=== PATIENT | male | born 1945 | race Caucasian/White ===

== ENCOUNTER 2017-07-11 17:16 | Observation (INO) | payer MEDICARE ==
[~2017-07-11] VITALS: Ht 167.6 cm; Wt 75.0 kg
[~2017-07-11 17:16] MED LIST: ALBU8I INH; CENTTAB9 PO; DORZ2SOL3 EACH EYE; GLUC500C56 PO; IPRAAER INH; LATA.005%O EACH EYE; METR-1 PO; PROM25TA5 PO
[2017-07-11 17:18] VITALS: BP 145/67; PULSE 74; RESP 22
[2017-07-11] MEDS ORDERED: SODIUM CHLOR 0.9% 1000 ML INJ 1,000 ML IV ONE (17:29)
[2017-07-11] MEDS ORDERED: SODIUM CHLORIDE 0.9% FLUSH 10 ML FLUSH IVF PRN (17:30)
--- NOTE | 2017-07-11 18:22 | RADRPT ---
EXAM DATE/TIME: 07/11/2017 17:53 [place] COMPARISON: CHEST SINGLE AP, July 28, 2013, 23:37. INDICATIONS : Syncope, weakness. MEDICAL HISTORY : None. SURGICAL HISTORY : None. ENCOUNTER: Initial ACUITY: 1 day PAIN SCORE: 0/10 LOCATION: Bilateral chest FINDINGS: A single view of the chest demonstrates the lungs to be symmetrically aerated without evidence of mas s, infiltrate or effusion. The cardiomediastinal contours are unremarkable. Osseous structures are intact. CONCLUSION: No acute disease. Arie Castrejon Jr., MD on July 11, 2017 at 18:19 Board Certified Radiologist. This report was verified electronically.
[2017-07-11 18:35] LABS: AUTOMATED NEUTROPHIL # 2.7 TH/MM3 (1.8-7.7); BASOPHIL % 0.8 % (0.0-2.0); EOSINOPHIL % 0.1 % (0.0-4.0); HEMOGLOBIN 14.7 GM/DL (13.0-17.0); LYMPH % 26.7 % (9.0-44.0); LYMPHOCYTE # 1.2 TH/MM3 (1.0-4.8); MEAN CELL VOLUME 88.8 FL (80.0-100.0); MEAN CORPUSCULAR HEMOGLOBIN 31.1 PG (27.0-34.0); MEAN PLATELET VOLUME 8.8 FL (7.0-11.0); MONOCYTE # 0.6 TH/MM3 (0-0.9); NEUT % 58.4 % (16.0-70.0); PLATELET COUNT 204 TH/MM3 (150-450); RED BLOOD COUNT 4.73 MIL/MM3 (4.50-5.90); RED CELL DISTRIBUTION WIDTH 13.9 % (11.6-17.2); WHITE BLOOD COUNT 4.6 TH/MM3 (4.0-11.0)
[2017-07-11 18:47] LABS: AMORPHOUS SEDIMENT, URINE RARE; BILIRUBIN, URINE NEG (NEG); BLOOD, URINE NEG (NEG); GLUCOSE,URINE NEG (NEG); HYALINE CAST, URINE 39 /lpf (RARE); KETONE, URINE 10 mg/dL (NEG); MUCUS URINE FEW /lpf (OCC); NITRITE,URINE NEG (NEG); PH, URINE 5.5 (5.0-8.5); SQUAMOUS EPITHELIAL CELL URINE <1 /hpf (0-5); URINE COLOR YELLOW (YELLW/STRAW); URINE LEUKOCYTE ESTERASE NEG (NEG)
--- NOTE | 2017-07-11 18:58 | PD ---
HPI Chief Complaint: Syncope/Near-Syncope Time Seen by Provider: 17:29 Travel History International Travel<30 days: No Contact w/Intl Traveler<30days: No Traveled to known affect area: No History of Present Illness HPI His is a 72-year-old male with a history of pulmonary disease, presents here after having syncopal episode 3 episodes. Patient states he's had diarrhea for the last 2 days. He states that he's had decreased by mouth intake. He was at the orthopedics office with his when he got up and had a syncopal episode. He was caught by one of the staff members at the orthopedic Center. He had 2 further episodes. The patient states that he has had previous syncope in the past and it was secondary to dehydration. The patient has no cardiac history. When paramedics arrived, they found the patient to be pale and diaphoretic. They state that they put him on the monitor and he had ventricular bigeminy. The patient has no chest pain, chest pressure. The patient has no shortness breath or cough. The patient does report the diarrhea as above. He's had recent eye infection for antibiotic eyedrops however has not had any recent oral antibiotics. PFSH Past Medical History Arthritis: Yes Asthma: Yes Anxiety: No Depression: No Heart Rhythm Problems: No Cancer: No Cardiovascular Problems: No High Cholesterol: No Chemotherapy: No Chest Pain: No Congestive Heart Failure: No COPD: Yes Cerebrovascular Accident: No Diabetes: No Diminished Hearing: No Endocrine: No GERD: No Glaucoma: Yes Genitourinary: Yes Hepatitis: No Hiatal Hernia: No Immune Disorder: No Kidney Stones: No Musculoskeletal: Yes (ARTHRITIS) Neurologic: Yes Psychiatric: No Reproductive: No Respiratory: Yes (COPD) Migraines: No Radiation Therapy: No Renal Failure: No Seizures: No Sickle Cell Disease: No Sleep Apnea: No Thyroid Disease: No Ulcer: No Influenza Vaccination: No ?: Not Past Surgical History Abdominal Surgery: No AICD: No Arteriovenous Shunt: No Cardiac Surgery: No Ear Surgery: No Endocrine Surgery: No Eye Surgery: Yes (RHINOPLASTY FOR IMPAIRED VISION) Genitourinary Surgery: No Gynecologic Surgery: No Insulin Pump: No Joint Replacement: No Oral Surgery: Yes (T & A) Pacemaker: No Thoracic Surgery: No Tonsillectomy: Yes Other Surgery: Yes Social History Alcohol Use: No Tobacco Use: No Substance Use: Yes (cannabis) Allergies-Medications (Allergen,Severity, Reaction): Coded Allergies: Horse/Equine Containing Products (Unverified Allergy, Mild, 07/11/17) penicillin G (Unverified Allergy, Mild, 07/11/17) clindamycin (Verified Allergy, Unknown, VOMITING , 07/11/17) Reported Meds & Prescriptions Reported Meds & Active Scripts Active Review of Systems Except as stated in HPI: all other systems reviewed are Neg HENT: Positive: Lightheadedness, No: Headaches, Neck Pain Cardiovascular: Positive: Irregular Rhythm (bigeminy noted via the EMS team. Patient has no history of irregular heartbeat), No: Chest Pain or Discomfort, Palpitations Respiratory: No: Cough, Shortness of Breath Gastrointestinal: Positive: Diarrhea, Other (incontinence to stool with a syncopal episode), No: Nausea, Vomiting, Abdominal Pain Genitourinary: Positive: Incontinence (incontinence after the syncopal episode) , No: Dysuria Musculoskeletal: Positive: Weakness, No: Pain Neurologic: Positive: Weakness, Dizziness, Syncope, No: Headache, Change in Mentation Physical Exam Narrative GENERAL: Developed well-nourished male who appears pale and mildly diaphoretic. SKIN: Focused skin assessment warm/dry. HEAD: Atraumatic. Normocephalic. EYES: No scleral icterus. No injection or drainage. ENT: No nasal bleeding or discharge. Mucous membranes pink and moist. NECK: Trachea midline. Supple. CARDIOVASCULAR: Regular rate and rhythm. There were occasional PVCs noted. No murmur appreciated. RESPIRATORY: No accessory muscle use. Clear to auscultation. Breath sounds equal bilaterally. GASTROINTESTINAL: Abdomen soft, non-tender, nondistended. No pulsatile masses. No pain elicited on exam. MUSCULOSKELETAL: No obvious deformities. No clubbing. No cyanosis. No edema. NEUROLOGICAL: Awake and alert. No obvious cranial nerve deficits. Motor grossly within normal limits. Normal speech. Data Data Last Documented VS Vital Signs Date Time Temp Pulse Resp B/P (MAP) Pulse Ox O2 Delivery O2 Flow Rate FiO2 07/11/17 19:07 98.1 74 18 147/94 (111) 95 Room Air Orders Orders Complete Blood Count With Diff (07/11/17 17:29) Comprehensive Metabolic Panel (07/11/17 17:29) Troponin I (07/11/17 17:29) Urinalysis - C+S If Indicated (07/11/17 17:29) Chest, Single Ap (07/11/17 17:29) Ecg Monitoring (07/11/17 17:29) Iv Access Insert/Monitor (07/11/17 17:29) Oximetry (07/11/17 17:29) Sodium Chloride 0.9% Flush (Ns Flush) (07/11/17 17:30) Sodium Chlor 0.9% 1000 Ml Inj (Ns 1000 M (07/11/17 17:29) Enteric Path (Stool) (07/11/17 17:29) C Diff Toxin Pcr (07/11/17 17:29) Electrocardiogram (07/11/17 17:22) Labs Laboratory Tests Test 07/11/17 17:40 07/11/17 18:00 White Blood Count 4.6 TH/MM3 Red Blood Count 4.73 MIL/MM3 Hemoglobin 14.7 GM/DL Hematocrit 42.0 % Mean Corpuscular Volume 88.8 FL Mean Corpuscular Hemoglobin 31.1 PG Mean Corpuscular Hemoglobin Concent 35.0 % Red Cell Distribution Width 13.9 % Platelet Count 204 TH/MM3 Mean Platelet Volume 8.8 FL Neutrophils (%) (Auto) 58.4 % Lymphocytes (%) (Auto) 26.7 % Monocytes (%) (Auto) 14.0 % Eosinophils (%) (Auto) 0.1 % Basophils (%) (Auto) 0.8 % Neutrophils # (Auto) 2.7 TH/MM3 Lymphocytes # (Auto) 1.2 TH/MM3 Monocytes # (Auto) 0.6 TH/MM3 Eosinophils # (Auto) 0.0 TH/MM3 Basophils # (Auto) 0.0 TH/MM3 CBC Comment DIFF FINAL Differential Comment Blood Urea Nitrogen 13 MG/DL Creatinine 1.32 MG/DL Random Glucose 145 MG/DL Total Protein 7.6 GM/DL Albumin 3.7 GM/DL Calcium Level 8.9 MG/DL Alkaline Phosphatase 64 U/L Aspartate Amino Transf (AST/SGOT) 36 U/L Alanine Aminotransferase (ALT/SGPT) 35 U/L Total Bilirubin 0.4 MG/DL Sodium Level 134 MEQ/L Potassium Level 4.1 MEQ/L Chloride Level 101 MEQ/L Carbon Dioxide Level 25.3 MEQ/L Anion Gap 8 MEQ/L Estimat Glomerular Filtration Rate 53 ML/MIN Troponin I LESS THAN 0.02 NG/ML Urine Color YELLOW Urine Turbidity CLEAR Urine pH 5.5 Urine Specific [place] 1.018 Urine Protein TRACE mg/dL Urine Glucose (UA) NEG mg/dL Urine Ketones 10 mg/dL Urine Occult Blood NEG Urine Nitrite NEG Urine Bilirubin NEG Urine Urobilinogen LESS THAN 2.0 MG/DL Urine Leukocyte Esterase NEG Urine RBC 4 /hpf Urine WBC 2 /hpf Urine Squamous Epithelial Cells <1 /hpf Urine Amorphous Sediment RARE Urine Hyaline Casts 39 /lpf Urine Mucus FEW /lpf Microscopic Urinalysis Comment CULT NOT INDICATED MDM Medical Decision Making Medical Screen Exam Complete: Yes Emergency Medical Condition: Yes Differential Diagnosis Cardiac syncope versus dehydration versus metabolic derangement Narrative Course 72-year-old male presents after 3 syncopal episodes while at the doctor's office with his . The patient was noted to have ventricular bigeminy in the field. When he arrived he had occasional PVCs however was in sinus rhythm. EKG shows no evidence of acute ST elevation or depression. Electrolytes are pending at this time. He'll be signed out to Dr. Gandhi, physician placing me at change of shift. He will likely need admission. He's been given 1 L of IV fluid. Diagnosis Primary Impression: Syncope Additional Impressions: Diarrhea Ventricular ectopy Admitting Information Admitting Physician Requests: Admit Zachary Landry MD Jul 11, 2017 18:58
[2017-07-11 19:01] LABS: ALBUMIN 3.7 GM/DL (3.4-5.0); AST (GOT) 36 U/L (15-37); BICARBONATE 25.3 MEQ/L (21.0-32.0); BLOOD UREA NITROGEN 13 MG/DL (7-18); CALCIUM 8.9 MG/DL (8.5-10.1); CHLORIDE 101 MEQ/L (98-107); CREATININE 1.32 MG/DL (0.60-1.30); GLOMERULAR FILTRATION RATE 53 ML/MIN (>89); GLUCOSE,RANDOM 145 MG/DL (74-106); SODIUM (NA) 134 MEQ/L (136-145)
[2017-07-11 19:02] LABS: ALT (GPT) 35 U/L (12-78)
[2017-07-11 19:06] LABS: ALKALINE PHOSPHATASE 64 U/L (45-117); TOTAL BILIRUBIN ADULT 0.4 MG/DL (0.2-1.0); TOTAL PROTEIN 7.6 GM/DL (6.4-8.2); TROPONIN I LESS THAN 0.02 NG/ML (0.02-0.05)
[2017-07-11 19:07] VITALS: BP 147/94; PULSE 74; RESP 18; TEMP 98.1; O2SAT 95
[2017-07-11] MEDS ORDERED: methylPREDNISolone SOD SUCC 125 MG/2 ML VIAL IV PUSH ONE (19:45)
[2017-07-11] MEDS ORDERED: RESP: ALBUTEROL 2.5 MG/IPRATROPIUM 0.5 MG NEB (SCH) NEB ONE (19:45)
[2017-07-11] MEDS ORDERED: SODIUM CHLORIDE 0.9% FLUSH 10 ML FLUSH IV FLUSH PRN (20:45)
[2017-07-11] MEDS ORDERED: ACETAMINOPHEN 325 MG TAB PO PRN (20:45)
[2017-07-11] MEDS ORDERED: MAGNESIUM HYDROXIDE SUSP 30 ML CUP PO PRN (20:45)
[2017-07-11] MEDS ORDERED: ONDANSETRON HCL 4 MG/2 ML VIAL IVP PRN (20:45)
[2017-07-11] MEDS ORDERED: NALOXONE HCL 0.4 MG/ML AMP IV PUSH PRN (20:45)
[2017-07-11 21:01] VITALS: BP 136/63; PULSE 77; RESP 18; O2SAT 100
[2017-07-11] MEDS: NS + KCL 20 MEQ INJ 1,000 ML IV SCH (21:04)
[2017-07-11] MEDS: SODIUM CHLORIDE 0.9% FLUSH 10 ML FLUSH IV FLUSH SCH (21:04)
[2017-07-11 22:00] VITALS: O2SAT 95; O2SAT 96
[2017-07-11] MEDS: metroNIDAZOLE 500 MG TAB PO SCH (23:12)
[2017-07-11 23:49] VITALS: BP 150/77; PULSE 68; RESP 18; O2SAT 100
[2017-07-12] VITALS (8 sets, daily range): BP systolic 137–173; BP diastolic 74–88; PULSE 71–99; RESP 18; TEMP 96.8–98; O2SAT 91–94
--- NOTE | 2017-07-12 00:29 | HHI.HP ---
HPI Service [facility] Hospitalists Primary Care Physician Gopal Steiner MD Admission Diagnosis Syncope, Bigeminy, Dehydration Chief Complaint: diarrhea near syncope Travel History International Travel<30 Days: No Contact w/Intl Traveler <30 Da: No Traveled to Known Affected Are: No History of Present Illness Patient is a pleasant 72-year-old male with a history of COPD, the pH, and vitamin D insufficiency. Patient presented to the ER with complaint of diarrhea. Patient stated that the diarrhea had been ongoing for approximately 2 days. Patient denied abdominal pain. Patient denied bloody stool. Patient denied recent antibiotic use, with the exception of antibiotic eyedrops. Patient reportedly had a syncopal episode in his orthopedist office prior to arrival at the ER and was caught by a staff member without apparent injury. Patient continue to have difficulties with ambulation and became diaphoretic when attempting to stand up in the ER. Patient's creatinine is elevated from baseline and findings are consistent with dehydration. Patient's Clostridium difficile stool antigen was positive. Patient was started on intravenous fluids and oral Flagyl. Patient admitted to [facility] for further evaluation and treatment. Review of Systems Constitutional: COMPLAINS OF: Diaphoretic episodes, DENIES: Fatigue, Fever, Weight gain, Weight loss, Chills, Dizziness, Change in appetite, Night Sweats Endocrine: DENIES: Heat/cold intolerance, Polydipsia, Polyuria, Polyphagia Eyes: DENIES: Blurred vision, Diplopia, Eye inflammation, Eye pain, Vision loss , Photosensitivity, Double Vision Ears, nose, mouth, throat: DENIES: Tinnitus, Hearing loss, Vertigo, Nasal discharge, Oral lesions, Throat pain, Hoarseness, Ear Pain, Running Nose, Epistaxis, Sinus Pain, Toothache, Odynophagia Respiratory: COMPLAINS OF: Wheezing, DENIES: Apneas, Cough, Snoring, Hemoptysis , Sputum production, Shortness of breath Cardiovascular: DENIES: Chest pain, Palpitations, Syncope, Dyspnea on Exertion , PND, Lower Extremity Edema, Orthopnea, Claudication Gastrointestinal: COMPLAINS OF: Diarrhea, See HPI, DENIES: Abdominal pain, Black stools, Bloody stools, BRB per rectum, Constipation, GERD, Nausea, Reflux , Vomiting, Difficulty Swallowing, Anorexia Genitourinary: DENIES: Urinary frequency, Urinary incontinence, Urgency, Hematuria, Dysuria, Nocturia, Penile Discharge Musculoskeletal: DENIES: Joint pain, Muscle aches, Stiffness, Joint Swelling, Back pain, Neck pain Integumentary: DENIES: Abnormal pigmentation, Nail changes, Pruritus, Rash Hematologic/lymphatic: DENIES: Bruising, Lymphadenopathy Immunologic/allergic: DENIES: Eczema, Urticaria Neurologic: DENIES: Abnormal gait, Headache, Localized weakness, Paresthesias, Seizures, Speech Problems, Tremor, Poor Balance Psychiatric: DENIES: Anxiety, Confusion, Mood changes, Depression, Hallucinations, Agitation, Suicidal Ideation, Homicidal Ideation, Delusions, History of Bipolar, History of Schizophrenia Past Family Social History Past Medical History 1) COPD 2) BPH 3) elevated PSA antigen 4) vitamin D deficiency 5) prediabetes Past Surgical History 1) blepharoplasty 2) colonoscopy Reported Medications Reported Meds & Active Scripts Active Allergies: Coded Allergies: Horse/Equine Containing Products (Unverified Allergy, Mild, 07/11/17) penicillin G (Unverified Allergy, Mild, 07/11/17) clindamycin (Verified Allergy, Unknown, VOMITING , 07/11/17) Family History Noncontributory Social History - Former smoker - Uses marijuana daily - No alcohol Physical Exam Vital Signs Vital Signs Date Time Temp Pulse Resp B/P (MAP) Pulse Ox O2 Delivery O2 Flow Rate FiO2 07/11/17 23:49 68 18 150/77 (101) 100 Room Air 07/11/17 21:01 77 18 136/63 (87) 100 07/11/17 19:07 98.1 74 18 147/94 (111) 95 Room Air 07/11/17 17:18 74 22 145/67 (93) Physical Exam GENERAL: This is a well-nourished, well-developed patient, in no apparent distress. SKIN: No rashes, ecchymoses or lesions. Cool and dry. HEAD: Atraumatic. Normocephalic. No temporal or scalp tenderness. EYES: Pupils equal round and reactive. Extraocular motions intact. No scleral icterus. No injection or drainage. ENT: Nose without bleeding, purulent drainage or septal hematoma. Throat without erythema, tonsillar hypertrophy or exudate. Uvula midline. Airway patent. NECK: Trachea midline. No JVD or lymphadenopathy. Supple, nontender, no meningeal signs. CARDIOVASCULAR: Regular rate and rhythm without murmurs, gallops, or rubs. RESPIRATORY: Clear to auscultation. Breath sounds equal bilaterally. No wheezes , rales, or rhonchi. GASTROINTESTINAL: Abdomen soft, non-tender, nondistended. No hepato-splenomegaly , or palpable masses. No guarding. MUSCULOSKELETAL: Extremities without clubbing, cyanosis, or edema. No joint tenderness, effusion, or edema noted. No calf tenderness. Negative Homans sign bilaterally. NEUROLOGICAL: Awake and alert. Cranial nerves II through XII intact. Motor and sensory grossly within normal limits. Five out of 5 muscle strength in all muscle groups. Normal speech. Laboratory Laboratory Tests Test 07/11/17 17:40 07/11/17 18:00 White Blood Count 4.6 Red Blood Count 4.73 Hemoglobin 14.7 Hematocrit 42.0 Mean Corpuscular Volume 88.8 Mean Corpuscular Hemoglobin 31.1 Mean Corpuscular Hemoglobin Concent 35.0 Red Cell Distribution Width 13.9 Platelet Count 204 Mean Platelet Volume 8.8 Neutrophils (%) (Auto) 58.4 Lymphocytes (%) (Auto) 26.7 Monocytes (%) (Auto) 14.0 Eosinophils (%) (Auto) 0.1 Basophils (%) (Auto) 0.8 Neutrophils # (Auto) 2.7 Lymphocytes # (Auto) 1.2 Monocytes # (Auto) 0.6 Eosinophils # (Auto) 0.0 Basophils # (Auto) 0.0 CBC Comment DIFF FINAL Differential Comment Blood Urea Nitrogen 13 Creatinine 1.32 Random Glucose 145 Total Protein 7.6 Albumin 3.7 Calcium Level 8.9 Alkaline Phosphatase 64 Aspartate Amino Transf (AST/SGOT) 36 Alanine Aminotransferase (ALT/SGPT) 35 Total Bilirubin 0.4 Sodium Level 134 Potassium Level 4.1 Chloride Level 101 Carbon Dioxide Level 25.3 Anion Gap 8 Estimat Glomerular Filtration Rate 53 Troponin I LESS THAN 0.02 Urine Color YELLOW Urine Turbidity CLEAR Urine pH 5.5 Urine Specific [place] 1.018 Urine Protein TRACE Urine Glucose (UA) NEG Urine Ketones 10 Urine Occult Blood NEG Urine Nitrite NEG Urine Bilirubin NEG Urine Urobilinogen LESS THAN 2.0 Urine Leukocyte Esterase NEG Urine RBC 4 Urine WBC 2 Urine Squamous Epithelial Cells <1 Urine Amorphous Sediment RARE Urine Hyaline Casts 39 Urine Mucus FEW Microscopic Urinalysis Comment CULT NOT INDICATED Stool C. difficile Toxin (PCR) POSITIVE Stl C. difficile Toxin Epiderm 027 PRESUMPTIVE NEGATIVE Date/Time Source Procedure Growth Status 07/11/17 18:00 Stool Stool Pending Received Result Diagram: 07/11/17 1740 07/11/17 1740 Imaging Last Impressions Chest X-Ray 07/11/17 1729 Signed Impressions: Service Date/Time: Tuesday, July 11, 2017 17:53 - CONCLUSION: No acute disease. Arie Castrejon Jr., MD Septic Shock Reassessment Septic shock perfusion: reassessment completed Caprini VTE Risk Assessment Caprini VTE Risk Assessment: No/Low Risk (score <= 1) Caprini Risk Assessment Model Point Value = 1 Point Value = 2 Point Value = 3 Point Value = 5 Age 41-60 Minor surgery BMI > 25 kg/m2 Swollen legs Varicose veins or History of unexplained or recurrent spontaneous Oral contraceptives or hormone replacement Sepsis (< 1 month) Serious lung disease, including pneumonia (< 1 month) Abnormal pulmonary function Acute myocardial infarction Congestive heart failure (< 1 month) History of inflammatory bowel disease Medical patient at bed rest Age 61-74 Arthroscopic surgery Major open surgery (> 45 min) Laparoscopic surgery (> 45 min) Malignancy Confined to bed (> 72 hours) Immobilizing plaster cast Central venous access Age >= 75 History of VTE Family history of VTE Factor V Leiden Prothrombin [id number] Lupus anticoagulant Anticardiolipin antibodies Elevated serum homocysteine Heparin-induced thrombocytopenia Other congenital or acquired thrombophilia Stroke (< 1 month) Elective arthroplasty Hip, pelvis, or leg fracture Acute spinal cord injury (< 1 month) Prophylaxis Regimen Total Risk Factor Score Risk Level Prophylaxis Regimen 0-1 Low Early ambulation 2 Moderate Order ONE of the following: *Sequential Compression Device (SCD) *Heparin 5000 units SQ BID 3-4 Higher Order ONE of the following medications: *Heparin 5000 units SQ TID *Enoxaparin/Lovenox 40 mg SQ daily (WT < 150 kg, CrCl > 30 mL/min) *Enoxaparin/Lovenox 30 mg SQ daily (WT < 150 kg, CrCl > 10-29 mL/min) *Enoxaparin/Lovenox 30 mg SQ BID (WT < 150 kg, CrCl > 30 mL/min) AND/OR *Sequential Compression Device (SCD) 5 or more Highest Order ONE of the following medications: *Heparin 5000 units SQ TID (Preferred with Epidurals) *Enoxaparin/Lovenox 40 mg SQ daily (WT < 150 kg, CrCl > 30 mL/min) *Enoxaparin/Lovenox 30 mg SQ daily (WT < 150 kg, CrCl > 10-29 mL/min) *Enoxaparin/Lovenox 30 mg SQ BID (WT < 150 kg, CrCl > 30 mL/min) AND *Sequential Compression Device (SCD) Assessment and Plan Problem List: (1) Clostridium difficile diarrhea ICD Codes: A04.72 - Enterocolitis due to Clostridium difficile, not specified as recurrent Status: Acute Plan: - Patient presented to the ER with syncopal episode - Pt c/o diarrhea x 2d - Pt denies oral antibiotics. Pt has recently used antibiotic eyedrops - C. Dif antigen positive - Pt started on IVFs - Pt started on PO flagyl - PT evaluation - supportive care - DVT prophylaxis (2) Syncope ICD Codes: R55 - Syncope and collapse Status: Acute Plan: - pt's syncope was likely d/t dehydration - Pt had been having diarrhea for 2 days with decreased oral intake - Pt became diaphoretic when he attempted to stand up in the ER - Creatinine elevated from pt's baseline - Pt started on IVFs - Pt to evaluate pt (3) COPD (chronic obstructive pulmonary disease) ICD Codes: J44.9 - Chronic obstructive pulmonary disease, unspecified Status: Chronic Plan: - Pt has h/o COPD - Pt follows with Pulmonary Medicine, Dr. Dillon Snyder, last seen September 2015 - Pt takes Breo Ellipta, once daily - Pt uses Ventolin MDI prn - Pt received one dose of IV solumedrol in the ER, pt was wheezing - Pt started on duoneb q6h while - CXR (07/11) --> NO acute findings Problem Qualifiers (1) Syncope: Qualified Codes: R55 - Syncope and collapse (2) COPD (chronic obstructive pulmonary disease): Manuel Vogt DO Jul 12, 2017 00:29
[2017-07-12] MEDS: metroNIDAZOLE 500 MG TAB PO SCH ×4 (03:58→20:30)
[2017-07-12 06:54] LABS: AUTOMATED NEUTROPHIL # 1.9 TH/MM3 (1.8-7.7); BASOPHIL % 1.2 % (0.0-2.0); HEMATOCRIT 42.2 % (39.0-51.0); HEMOGLOBIN 14.1 GM/DL (13.0-17.0); LYMPH % 22.5 % (9.0-44.0); LYMPHOCYTE # 0.6 TH/MM3 (1.0-4.8); MEAN CELL VOLUME 89.1 FL (80.0-100.0); MEAN CORPUSCULAR HEMOGLOBIN 29.8 PG (27.0-34.0); MEAN CORPUSCULAR HGB CONC 33.5 % (32.0-36.0); MEAN PLATELET VOLUME 7.9 FL (7.0-11.0); MONO % 7.1 % (0.0-8.0); MONOCYTE # 0.2 TH/MM3 (0-0.9); NEUT % 69.2 % (16.0-70.0); PLATELET COUNT 174 TH/MM3 (150-450); RED BLOOD COUNT 4.74 MIL/MM3 (4.50-5.90); RED CELL DISTRIBUTION WIDTH 14.3 % (11.6-17.2); WHITE BLOOD COUNT 2.8 TH/MM3 (4.0-11.0)
[2017-07-12 07:23] LABS: BICARBONATE 25.5 MEQ/L (21.0-32.0); CALCIUM 8.3 MG/DL (8.5-10.1); CREATININE 0.74 MG/DL (0.60-1.30)
[2017-07-12] MEDS: RESP: ALBUTEROL 2.5 MG/IPRATROPIUM 0.5 MG NEB (SCH) NEB ×3 (08:04→19:55)
[2017-07-12] MEDS: SODIUM CHLORIDE 0.9% FLUSH 10 ML FLUSH IV FLUSH SCH ×2 (09:00→20:26)
[2017-07-12] MEDS: NS + KCL 20 MEQ INJ 1,000 ML IV SCH ×2 (09:40→20:30)
[2017-07-12] MEDS: FLUTICASONE 100 MCG/VILANTEROL 25 MCG INHALER INH SCH (10:43)
[2017-07-12] MEDS ORDERED: BRIM0.2S4 EACH EYE (11:49)
[2017-07-12] MEDS ORDERED: VENTAER INH (11:49)
[2017-07-12] MEDS ORDERED: DORZ2SOL7 EACH EYE (11:49)
[2017-07-12] MEDS ORDERED: LIPI40TA PO (11:49)
[2017-07-12] MEDS ORDERED: FLUT1INH INH (11:49)
[2017-07-12] MEDS ORDERED: LATA.005%O EACH EYE (11:49)
--- NOTE | 2017-07-12 15:09 | HHI.PR ---
Subjective Remarks Pt stronger and less dizzy today. Pt is tolerating PO intake without n/v. Pt continues with diarrhea. Objective Vitals Vital Signs Date Time Temp Pulse Resp B/P (MAP) Pulse Ox O2 Delivery O2 Flow Rate FiO2 07/12/17 12:16 96.8 83 18 141/75 (97) 93 07/12/17 08:33 98.0 84 18 137/76 (96) 93 07/12/17 08:08 94 21 07/12/17 02:04 98.0 71 18 155/74 (101) 91 07/12/17 01:03 07/11/17 23:49 68 18 150/77 (101) 100 Room Air 07/11/17 22:00 96 Nasal Cannula 2.00 07/11/17 21:01 77 18 136/63 (87) 100 07/11/17 19:07 98.1 74 18 147/94 (111) 95 Room Air 07/11/17 17:18 74 22 145/67 (93) Result Diagram: 07/12/17 0630 07/12/17 0630 Imaging Last Impressions Chest X-Ray 07/11/17 1729 Signed Impressions: Service Date/Time: Tuesday, July 11, 2017 17:53 - CONCLUSION: No acute disease. Arie Castrejon Jr., MD Objective Remarks GENERAL: This is a well-nourished, well-developed patient, in no apparent distress. CARDIOVASCULAR: Regular rate and rhythm without murmurs, gallops, or rubs. RESPIRATORY: Clear to auscultation. Breath sounds equal bilaterally. No wheezes , rales, or rhonchi. GASTROINTESTINAL: Abdomen soft, non-tender, nondistended. Normal active bowel sounds MUSCULOSKELETAL: Extremities without clubbing, cyanosis, or edema. NEURO: Alert & Oriented x4 to person, place, time, situation. Moves all ext x4 A/P Problem List: (1) Clostridium difficile diarrhea ICD Codes: A04.72 - Enterocolitis due to Clostridium difficile, not specified as recurrent Status: Acute Plan: - Patient presented to the ER with syncopal episode - Pt c/o diarrhea x 2d prior to admission - Pt denies oral antibiotics. Pt has recently used antibiotic eyedrops - C. Dif antigen positive - IVFs - PO flagyl - PT - anticipate discharge in 1-2 days. - supportive care - DVT prophylaxis (2) Syncope ICD Codes: R55 - Syncope and collapse Status: Acute Plan: - pt's syncope was likely d/t dehydration - Pt had been having diarrhea for 2 days with decreased oral intake - Pt became diaphoretic when he attempted to stand up in the ER - Creatinine elevated from pt's baseline, now improved with IVFs - see above (3) COPD (chronic obstructive pulmonary disease) ICD Codes: J44.9 - Chronic obstructive pulmonary disease, unspecified Status: Chronic Plan: - Pt has h/o COPD - Pt follows with Pulmonary Medicine, Dr. Dillon Snyder, last seen September 2015 - Pt takes Breo Ellipta, once daily - Pt uses Ventolin MDI prn - Pt received one dose of IV solumedrol in the ER, pt was wheezing - Pt started on duoneb q6h while - CXR (07/11) --> NO acute findings Problem Qualifiers (1) Syncope: Qualified Codes: R55 - Syncope and collapse (2) COPD (chronic obstructive pulmonary disease): Manuel Vogt DO Jul 12, 2017 15:09
--- NOTE | 2017-07-12 15:53 | EKG ---
Date Performed: 07/11/2017 Time Performed: 17:22:13 PTAGE: 72 years EKG: Sinus rhythm Since previous tracing, no significant change noted NORMAL ECG PREVIOUS TRACING : 10/09/2014 11.27 DOCTOR: Frieda Valdez Interpretating Date/Time 07/12/2017 15:51:13
[2017-07-13] VITALS: BP 145/81; PULSE 81; RESP 20; TEMP 97.7; O2SAT 96
[2017-07-13 03:42] VITALS: PULSE 75
[2017-07-13] MEDS: metroNIDAZOLE 500 MG TAB PO SCH ×2 (04:00→09:33)
[2017-07-13 08:20] VITALS: BP 148/83; PULSE 73; RESP 18; TEMP 98.2; O2SAT 94
[2017-07-13] MEDS: SODIUM CHLORIDE 0.9% FLUSH 10 ML FLUSH IV FLUSH SCH (09:00)
[2017-07-13] MEDS: RESP: ALBUTEROL 2.5 MG/IPRATROPIUM 0.5 MG NEB (SCH) NEB ×2 (09:02→14:26)
[2017-07-13] MEDS: FLUTICASONE 100 MCG/VILANTEROL 25 MCG INHALER INH SCH (09:33)
[2017-07-13] MEDS: NS + KCL 20 MEQ INJ 1,000 ML IV SCH (09:34)
[2017-07-13] MEDS ORDERED: INFLUENZA VIRUS VACCINE (QUADRIVALENT) 0.5 ML SYR IM ONE (10:00)
[2017-07-13 11:47] VITALS: BP 141/89; PULSE 84; RESP 16; TEMP 98.6; O2SAT 92
[2017-07-13] MEDS ORDERED: METR-1 PO ×2 (14:22→14:28)
--- NOTE | 2017-07-13 14:30 | HHI.PR ---
Subjective Remarks Patient has had only one BM today reports feeling much better Objective Vitals Vital Signs Date Time Temp Pulse Resp B/P (MAP) Pulse Ox O2 Delivery O2 Flow Rate FiO2 07/13/17 11:47 98.6 84 16 141/89 (106) 92 07/13/17 08:20 98.2 73 18 148/83 (104) 94 07/13/17 03:42 75 07/13/17 00:00 97.7 81 20 145/81 (102) 96 07/12/17 16:15 99 07/12/17 15:34 97.6 76 18 173/88 (116) 93 Result Diagram: 07/12/17 0630 07/12/17 0630 Other Results Laboratory Tests Test 07/11/17 17:40 07/11/17 18:00 07/12/17 06:30 White Blood Count 4.6 TH/MM3 2.8 TH/MM3 Red Blood Count 4.73 MIL/MM3 4.74 MIL/MM3 Hemoglobin 14.7 GM/DL 14.1 GM/DL Hematocrit 42.0 % 42.2 % Mean Corpuscular Volume 88.8 FL 89.1 FL Mean Corpuscular Hemoglobin 31.1 PG 29.8 PG Mean Corpuscular Hemoglobin Concent 35.0 % 33.5 % Red Cell Distribution Width 13.9 % 14.3 % Platelet Count 204 TH/MM3 174 TH/MM3 Mean Platelet Volume 8.8 FL 7.9 FL Neutrophils (%) (Auto) 58.4 % 69.2 % Lymphocytes (%) (Auto) 26.7 % 22.5 % Monocytes (%) (Auto) 14.0 % 7.1 % Eosinophils (%) (Auto) 0.1 % 0.0 % Basophils (%) (Auto) 0.8 % 1.2 % Neutrophils # (Auto) 2.7 TH/MM3 1.9 TH/MM3 Lymphocytes # (Auto) 1.2 TH/MM3 0.6 TH/MM3 Monocytes # (Auto) 0.6 TH/MM3 0.2 TH/MM3 Eosinophils # (Auto) 0.0 TH/MM3 0.0 TH/MM3 Basophils # (Auto) 0.0 TH/MM3 0.0 TH/MM3 CBC Comment DIFF FINAL DIFF FINAL Differential Comment Blood Urea Nitrogen 13 MG/DL 9 MG/DL Creatinine 1.32 MG/DL 0.74 MG/DL Random Glucose 145 MG/DL 133 MG/DL Total Protein 7.6 GM/DL Albumin 3.7 GM/DL Calcium Level 8.9 MG/DL 8.3 MG/DL Alkaline Phosphatase 64 U/L Aspartate Amino Transf (AST/SGOT) 36 U/L Alanine Aminotransferase (ALT/SGPT) 35 U/L Total Bilirubin 0.4 MG/DL Sodium Level 134 MEQ/L 138 MEQ/L Potassium Level 4.1 MEQ/L 4.3 MEQ/L Chloride Level 101 MEQ/L 106 MEQ/L Carbon Dioxide Level 25.3 MEQ/L 25.5 MEQ/L Anion Gap 8 MEQ/L 7 MEQ/L Estimat Glomerular Filtration Rate 53 ML/MIN 104 ML/MIN Troponin I LESS THAN 0.02 NG/ML Urine Color YELLOW Urine Turbidity CLEAR Urine pH 5.5 Urine Specific [place] 1.018 Urine Protein TRACE mg/dL Urine Glucose (UA) NEG mg/dL Urine Ketones 10 mg/dL Urine Occult Blood NEG Urine Nitrite NEG Urine Bilirubin NEG Urine Urobilinogen LESS THAN 2.0 MG/DL Urine Leukocyte Esterase NEG Urine RBC 4 /hpf Urine WBC 2 /hpf Urine Squamous Epithelial Cells <1 /hpf Urine Amorphous Sediment RARE Urine Hyaline Casts 39 /lpf Urine Mucus FEW /lpf Microscopic Urinalysis Comment CULT NOT INDICATED Stool C. difficile Toxin (PCR) POSITIVE Stl C. difficile Toxin Epiderm 027 PRESUMPTIVE NEGATIVE Imaging Last Impressions Chest X-Ray 07/11/17 1729 Signed Impressions: Service Date/Time: Tuesday, July 11, 2017 17:53 - CONCLUSION: No acute disease. Arie Castrejon Jr., MD Objective Remarks GENERAL: This is a well-nourished, well-developed patient, in no apparent distress. CARDIOVASCULAR: Regular rate and rhythm without murmurs, gallops, or rubs. RESPIRATORY: Clear to auscultation. Breath sounds equal bilaterally. No wheezes , rales, or rhonchi. GASTROINTESTINAL: Abdomen soft, non-tender, nondistended. Normal active bowel sounds MUSCULOSKELETAL: Extremities without clubbing, cyanosis, or edema. NEURO: Alert & Oriented x4 to person, place, time, situation. Moves all ext x4 A/P Problem List: (1) Clostridium difficile diarrhea ICD Codes: A04.72 - Enterocolitis due to Clostridium difficile, not specified as recurrent Status: Acute Plan: - Patient presented to the ER with syncopal episode - Pt c/o diarrhea x 2d prior to admission - Pt denies oral antibiotics. Pt has recently used antibiotic eyedrops - C. Dif antigen positive - IVFs - PO flagyl - PT - supportive care - DVT prophylaxis Patient stable plan to DC home today with Flagyl PO and follow up with PCP in 1 week (2) Syncope ICD Codes: R55 - Syncope and collapse Status: Acute Plan: - pt's syncope was likely d/t dehydration - Pt had been having diarrhea for 2 days with decreased oral intake - Pt became diaphoretic when he attempted to stand up in the ER - Creatinine elevated from pt's baseline, now improved with IVFs - see above (3) COPD (chronic obstructive pulmonary disease) ICD Codes: J44.9 - Chronic obstructive pulmonary disease, unspecified Status: Chronic Plan: - Pt has h/o COPD - Pt follows with Pulmonary Medicine, Dr. Dillon Snyder, last seen September 2015 - Pt takes Breo Ellipta, once daily - Pt uses Ventolin MDI prn - Pt received one dose of IV solumedrol in the ER, pt was wheezing - Pt started on duoneb q6h while - CXR (07/11) --> NO acute findings Assessment and Plan Patient examined. Assessment and plan formulated with Digna López PA-C. I agree with the above. Problem Qualifiers (1) Syncope: Qualified Codes: R55 - Syncope and collapse (2) COPD (chronic obstructive pulmonary disease): Digna López Jul 13, 2017 14:29 Manuel Vogt DO Jul 15, 2017 00:42
== END 2017-07-13 16:39 | disposition home or self-care (01) ==
LOC: NEPE 17:16 → NEDA 19:39 → NEDH 23:39 → NEPHCDU 07-12 00:55
PROVIDERS: ADMIT Hospitalist; ATTEND Hospitalist
DX: A04.72 Enterocolitis due to Clostridium difficile, not specified as recurrent (principal); R55 Syncope and collapse; E86.0 Dehydration; J44.9 Chronic obstructive pulmonary disease, unspecified; F12.90 Cannabis use, unspecified, uncomplicated; N40.0 Benign prostatic hyperplasia without lower urinary tract symptoms; Z87.891 Personal history of nicotine dependence
CPT/HCPCS: 71045; 80048; 80053; 81001; 84484; 85025; 87493; 87506; 93005; 94640; 94664; 96365; 96366; 96375; 97163; 99285; G0378; G8987; G8988; G8989; J2930; J3480; J7030